=== PATIENT | male | born 1955 | race Caucasian/White ===

== ENCOUNTER → 2017-04-30 10:34 | Outpatient (CLI) | payer BC ==
[2011-05-22 12:51] VITALS: BMI 19.9
== END | disposition home or self-care (01) ==
LOC: D.US 10:34
DX: M79.605 Pain in left leg (principal); M79.604 Pain in right leg

== ENCOUNTER → 2018-01-05 12:01 | Outpatient (CLI) | payer BC ==
[2011-05-22 12:51] VITALS: BMI 19.9
== END | disposition home or self-care (01) ==
LOC: D.US 11:00
DX: R60.0 Localized edema (principal)

== ENCOUNTER 2018-01-09 19:02 | Emergency (ER) | payer BC ==
[2011-05-22 12:51] VITALS: BMI 19.9
[2018-01-09 19:51] LABS: BASOPHILS 0.3 % (0-2); EOSINOPHILS 1.3 % (0-7); HEMATOCRIT 43.5 % (42.0-54.0); HEMOGLOBIN 15.2 g/dL (13.5-17.5); IMMATURE GRANULOCYTES 0.4 % (0-5); LYMPHOCYTES 17.3 % (15-50); MCH 33.2 pg (26.0-34.0); MCHC 34.9 g/dL (31.0-37.0); MEAN PLATELET VOLUME 9.3 fL (7.4-10.4); MONOCYTES 8.6 % (2-11); NEUTROPHILS 72.1 % (40-80); PLATELET COUNT 138 10x3/uL (130-400); RBC 4.58 10x6/uL (4.20-6.10); RDW 14.4 % (11.5-14.5); WBC 6.8 10x3/uL (4.8-10.8)
[2018-01-09 20:00] LABS: APTT 36.4 SECONDS (22.8-39.4); INR 2.31 (0.85-1.17); PROTIME 24.7 SECONDS (11.6-15.0)
[2018-01-09 20:11] LABS: ALKALINE PHOSPHATASE 52 U/L (46-116); ALT (SGPT) 40 U/L (10-68); BILIRUBIN - TOTAL 0.64 mg/dL (0.2-1.3); CALC OSMOLALITY 266 mosm/kg (275-300); CALCIUM 8.8 mg/dL (8.5-10.1); CARBON DIOXIDE 21.5 mmol/L (21.0-32.0); CHLORIDE - SERUM 99 mmol/L (98-107); GLUCOSE 122 mg/dL (74-106); POTASSIUM - SERUM 4.1 mmol/L (3.5-5.1); PROTEIN - SERUM 7.5 g/dL (6.4-8.2); SODIUM 131 mmol/L (136-145); UREA NITROGEN 22 mg/dL (7-18); eGFR NON AFRICAN AMERICAN 80 mL/min (90-120)
[2018-01-09 20:31] LABS: CREATINE KINASE 375 UL (21-232)
[2018-01-09 20:32] LABS: TROPONIN-I < 0.017 ng/mL (0.000-0.060)
[2018-01-09 20:33] LABS: CKMB 4.5 U/L (0.0-3.6)
== END 2018-01-09 22:10 | disposition home or self-care (01) ==
LOC: D.ER 19:02
PROVIDERS: Family Medicine
DX: R06.00 Dyspnea, unspecified (principal); I82.401 Acute embolism and thrombosis of unspecified deep veins of right lower extremity; K21.9 Gastro-esophageal reflux disease without esophagitis